=== PATIENT | male | born 1975 | race Caucasian/White ===

== ENCOUNTER → 2016-09-10 | Outpatient (CLI) | payer OTHER ==
--- NOTE | ~2016-09-10 | MR17 ---
[facility] A Service of [facility] & [facility] RADIOLOGY TEXT RESULTS PATIENT: MARYLOU EMERY LOCATION: [facility] : 75 UNIT #: [id number] AGE: [address]: Graham Gonzalez II, MD SEX: M ORDER DR: [id number] [facility] [address] [place], [place] [address] [id number] O MR#: [id number] Acc #: [id number] NAME: MARYLOU EMERY : 1975 SEX: M STUDY DATE/TIME: 09/10/2016 9:24 UNIT: [facility] ROOM: STUDY DESCRIPTION: MR Brain WWo Contrast Attending Physician: Graham Gonzalez II., M.D. Referring Physician: Graham Gonzalez II., M.D. Ordering Physician: Graham Gonzalez II., M.D. Primary Care Physician: Shahab Akers M.D. MRI CENTER REPORT This report is preliminary unless electronic signature is present. EXAM MRI of the brain with and without HISTORY Migraine headaches for 2 years, headaches are accompanied by dizziness. No history of cancer. FINDINGS MRI of the brain was performed prior to and following intravenous administration of 16 mL of MultiHance. No comparison. Incidental note made of a partially empty sella and a oneal cisterna magna versus a incidental posterior fossa arachnoid cyst. No Chiari-I malformation. No evidence for recent ischemic insult on the diffusion series. No MRI evidence for intracranial hemorrhage. The ventricles are normal in size and configuration and the domingo-white junction is well-maintained. Major intracranial flow voids are maintained. There is minimal fluid or inflammatory change right mastoid tip. Mild paranasal sinus mucosal thickening without sinus air-fluid level. No extraaxial fluid collection. No intracranial mass effect. Following contrast administration, there is no pathologic intracranial enhancement. IMPRESSION 1. 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 Otherwise essentially normal MRI of the brain with and without contrast for age group. Mild paranasal sinus disease but no sinus air-fluid level. Dictated by... Aniyah Johnson M.D. THIS IS AN ELECTRONICALLY VERIFIED REPORT Aniyah Johnson M.D. at 09/10/2016 10:36 PM [facility] A Service of [facility] RADIOLOGY TEXT RESULTS PATIENT: MARYLOU EMERY [facility] UNIT #: [id number] AGE: [address]: Graham Gonzalez II, MD SEX: M ORDER DR: JEFFERY/fortino TD: 09/10/2016 19:46 JOB #: [id number] MRI CENTER REPORT Page 1 of 1 COPY
== END | disposition home or self-care (01) ==
LOC: CMRI 07:57
DX: G43.909 Migraine, unspecified, not intractable, without status migrainosus (principal); J34.89 Other specified disorders of nose and nasal sinuses
CPT/HCPCS: 70553; A9577

== ENCOUNTER → 2016-11-26 | Outpatient (CLI) | payer OTHER ==
--- NOTE | ~2016-11-26 | MR113 ---
[facility] A Service of [facility] & [facility] RADIOLOGY TEXT RESULTS PATIENT: MARYLOU EMERY LOCATION: [facility] : 75 UNIT #: [id number] AGE: [address]: Hiram Cruz MD SEX: M ORDER DR: [id number] [facility] [address] [place], [place] [address] [id number] O MR#: [id number] Acc #: [id number] NAME: MARYLOU EMERY : 1975 SEX: M STUDY DATE/TIME: 11/26/2016 13:03 UNIT: [facility] ROOM: STUDY DESCRIPTION: MR Lumbar Wo Contrast Attending Physician: Hiram Cruz M.D. Referring Physician: Hiram Cruz M.D. Ordering Physician: Hiram Cruz M.D. Primary Care Physician: Mey Quiros M.D. MRI CENTER REPORT This report is preliminary unless electronic signature is present. EXAM MRI of the lumbar spine without contrast, dated 11/26/2016. COMPARISON Plain films lumbar spine dated 11/02/2016. HISTORY Low back pain with right leg pain for 3 months. FINDINGS Multisequence, multiplanar imaging of the lumbar spine was obtained without contrast. Vertebral body heights and alignment are preserved. Degenerative disc disease is noted from L3-4 to L5-S1, worse at L4-5. Conus terminates at upper L1. Signal of conus and cauda equina are within normal limits. Pre and paravertebral soft tissues do not demonstrate any significant abnormality. L1-2: Unremarkable. L2-3: Unremarkable. L3-4: Mild concentric disc bulge with borderline size to mild canal stenosis and mild inferior left neural foraminal encroachment. Minimal bilateral facet changes. L4-5: Concentric disc bulge with superimposed right to left subarticular broad-based protrusion which is most prominent in the right subarticular region suspicious for superimposed small extruded component. Ksalnjgq-ln-yvhdem canal stenosis is seen with mild left and moderate to severe right lateral recess stenosis. Mild inferior bilateral neural foraminal narrowing and minimal bilateral facet changes are seen. [facility] A Service of [facility] & [facility] RADIOLOGY TEXT RESULTS PATIENT: MARYLOU EMERY LOCATION: [facility] : 75 UNIT #: [id number] AGE: [address]: Hiram Cruz MD SEX: M ORDER DR: L5-S1: Concentric disc bulge with small right foraminal to extraforaminal broad-based protrusion without any significant neural foraminal narrowing or canal stenosis. Minimal bilateral facet change. IMPRESSION 1. Right to left subarticular broad-based disc protrusion is noted at L4-5, most prominent in the right subarticular region suspicious for a small extruded component. Severe canal stenosis with mild left, moderate right lateral recess stenosis and mild bilateral neural foraminal narrowing are noted at L4-5. Dictated by... Dick Kaplan M.D. THIS IS AN ELECTRONICALLY VERIFIED REPORT Dick Kaplan M.D. at 12/01/2016 11:34 AM CPR/jt TD: 11/26/2016 22:09 JOB #: [id number] MRI CENTER REPORT Page 1 of 1 COPY
== END | disposition home or self-care (01) ==
LOC: CMRI 12:51
DX: M54.5 Low back pain (principal); M51.26 Other intervertebral disc displacement, lumbar region; M48.06 Spinal stenosis, lumbar region; M99.83 Other biomechanical lesions of lumbar region
CPT/HCPCS: 72148